=== PATIENT | female | born 1985 | race African-American/Black ===

== ENCOUNTER 2019-08-10 19:28 | Inpatient (IN) | payer MEDICAID ==
[~2019-08-10] VITALS: Ht 172.7 cm; Wt 122.5 kg
[2019-08-10] MEDS ORDERED: LACTATED RINGERS 1,000 ML IV SCH (20:16)
[2019-08-10] MEDS ORDERED: MAGNESIUM 20 G PREMIX (L & D) 500 ML IV SCH (20:25)
[2019-08-10] MEDS ORDERED: HYDRALAZINE 20MG/ML VIAL IV PRN (20:30)
[2019-08-10] MEDS ORDERED: LABETALOL HCL 5MG/ML VIAL 20ML IV PRN ×3 (20:30)
[2019-08-10] MEDS ORDERED: DEXT 5%/LR + PITOCIN 20UNITS/L 1,000 ML IV ONE ×2 (20:44→21:30)
[2019-08-10 21:23] LABS: BASOPHILS % 0.3 % (0.0-2.0); EOSINOPHILS % 0.7 % (0.0-5.0); HEMATOCRIT. 31.5 % (36.0-48.0); HEMOGLOBIN. 10.8 g/dL (12.0-16.0); LYMPHOCYTES % 17.3 % (20.0-50.0); MEAN CORPUSCULAR HEMOGLOBIN 33.7 pg (28.0-32.0); MEAN CORPUSCULAR VOLUME 98.1 fL (81.0-99.0); MEAN PLATELET VOLUME 11.8 fl (7.4-10.4); MONOCYTES % 8.3 % (2.0-8.0); NEUTROPHILS % 73.4 % (40.0-76.0); PLATELET 100 x1000/uL (130-400); RED BLOOD CELL COUNT 3.21 mill/uL (4.2-5.4); RED CELL DISTRIBUTION WIDTH 14.7 % (11.6-14.6)
[2019-08-10 21:26] LABS: CHLORIDE 111 mEq/L (98-107)
[2019-08-10 21:29] LABS: D-DIMER 1.68 mg/L FEU (<0.50); INR 0.9; PARTIAL THROMBOPLASTIN TIME 26.5 sec (23.4-31.0); PROTHROMBIN TIME 9.1 sec (9.6-11.0)
[2019-08-10] MEDS ORDERED: MAGNESIUM SULFATE 20 GM in DEXT 5% WATER 500 ML IV SCH (21:30)
[2019-08-10] MEDS ORDERED: PENICILLIN G POTASSIUM 5 MMU in DEXT 5% WATER 100 ML IV SCH (21:30)
[2019-08-10] MEDS ORDERED: MAGNESIUM 2 G PREMIX 50 ML IV NR (21:30)
[2019-08-10 21:38] LABS: CLARITY URINE CLOUDY (CLEAR); COLOR URINE DARK YELLOW (YELLOW); KETONES URINE NEGATIVE (NEGATIVE); LEUKOCYTE ESTERASE URINE NEGATIVE (NEGATIVE); NITRITE URINE NEGATIVE (NEGATIVE); OCCULT BLOOD URINE TRACE (NEGATIVE); PH URINE 5.5 (4.5-8.0); PROTEIN URINE 4+ (NEGATIVE); SPECIFIC GRAVITY URINE 1.043 (1.005-1.030)
[2019-08-10 21:48] LABS: *AMPHETAMINES SCREEN URINE NEGATIVE (NEGATIVE); *BARBITURATES SCREEN URINE NEGATIVE (NEGATIVE)
[2019-08-10 21:49] LABS: *BENZODIAZEPINES SCREEN URINE NEGATIVE (NEGATIVE); *COCAINE SCREEN URINE NEGATIVE (NEGATIVE); METHADONE URINE SCREEN NEGATIVE (NEGATIVE); OPIATES URINE SCREEN NEGATIVE (NEGATIVE); PHENCYCLIDINE URINE SCREEN NEGATIVE (NEGATIVE)
[2019-08-10 21:50] LABS: CANNABINOID URINE SCREEN NEGATIVE (NEGATIVE)
[2019-08-10 21:58] LABS: HEPATITIS B SURFACE ANTIGEN NEGATIVE
[2019-08-11] MEDS ORDERED: PENICILLIN G POTASSIUM 2.5 MMU in DEXTROSE 5% WATER 50 ML IV SCH (01:30)
[2019-08-11] MEDS ORDERED: MAGNESIUM SULFATE 20 GM in DEXT 5% WATER 460 ML IV SCH (09:00)
[2019-08-11] MEDS ORDERED: ROPIVACAINE HCL/PF EPIDURAL 200 ML EPI SCH (09:45)
[2019-08-11 09:54] LABS: BASOPHILS % 0.3 % (0.0-2.0); EOSINOPHILS % 0.2 % (0.0-5.0); HEMATOCRIT. 35.3 % (36.0-48.0); HEMOGLOBIN. 11.8 g/dL (12.0-16.0); LYMPHOCYTES % 11.1 % (20.0-50.0); MEAN CORPUSCULAR HEMOGLOBIN 32.9 pg (28.0-32.0); MEAN CORPUSCULAR VOLUME 98.9 fL (81.0-99.0); MEAN PLATELET VOLUME 11.8 fl (7.4-10.4); MONOCYTES % 6.3 % (2.0-8.0); NEUTROPHILS % 82.1 % (40.0-76.0); PLATELET 110 x1000/uL (130-400); RED BLOOD CELL COUNT 3.57 mill/uL (4.2-5.4)
[2019-08-11 10:00] LABS: CHLORIDE 109 mEq/L (98-107)
[2019-08-11 10:09] LABS: D-DIMER 1.92 mg/L FEU (<0.50); FIBRINOGEN 471 mg/dL (200-400); INR 0.9; PARTIAL THROMBOPLASTIN TIME 25.9 sec (23.4-31.0)
[2019-08-11 10:12] LABS: PROTHROMBIN TIME < 9.0 sec (9.6-11.0)
[2019-08-11] MEDS ORDERED: FENTANYL CITRATE/PF 50MCG/ML 2ML VIAL ONE (13:47)
[2019-08-11] MEDS ORDERED: DEXT 5%/LR + PITOCIN 20UNITS/L 1,000 ML IV SCH (14:50)
[2019-08-11] MEDS ORDERED: IBUPROFEN 400MG TABLET PO PRN (15:00)
[2019-08-11] MEDS ORDERED: GLYCERIN/WITCH HAZEL LEAF MEDICATED PAD TOP PRN (15:00)
[2019-08-11] MEDS ORDERED: HEMORRHOIDAL SUPP PR PRN (15:00)
[2019-08-11] MEDS ORDERED: ACETAMINOPHEN WITH CODEINE 300/30MG TABLET PO PRN ×2 (15:00)
[2019-08-11] MEDS ORDERED: BENZOCAINE/LANOLIN/ALOE VERA SPRAY TOP PRN (15:00)
[2019-08-11] MEDS ORDERED: BISACODYL 10MG SUPP PR PRN (15:00)
[2019-08-11] MEDS ORDERED: LANOLIN OINT 7GM TUBE TOP PRN (15:00)
[2019-08-11] MEDS ORDERED: DIPHENHYDRAMINE 25MG CAPSULE PO PRN (15:00)
[2019-08-11 15:45] LABS: BASOPHILS % 0.3 % (0.0-2.0); HEMOGLOBIN. 11.2 g/dL (12.0-16.0); LYMPHOCYTES % 7.6 % (20.0-50.0); MEAN CORPUSCULAR HEMOGLOBIN 33.5 pg (28.0-32.0); MEAN CORPUSCULAR VOLUME 98.1 fL (81.0-99.0); MEAN PLATELET VOLUME 11.4 fl (7.4-10.4); MONOCYTES % 3.7 % (2.0-8.0); NEUTROPHILS % 88.4 % (40.0-76.0); PLATELET 104 x1000/uL (130-400); RED BLOOD CELL COUNT 3.36 mill/uL (4.2-5.4); RED CELL DISTRIBUTION WIDTH 14.6 % (11.6-14.6)
[2019-08-11 18:15] VITALS: BP 164/79
[2019-08-11 18:22] VITALS: BP 184/98
[2019-08-11 20:00] VITALS: BP 164/88
[2019-08-11] MEDS: MAGNESIUM SULFATE 20 GM in DEXT 5% WATER 500 ML IV SCH (20:55)
[2019-08-11] MEDS: DOCUSATE SODIUM 100MG CAPSULE PO SCH (20:56)
[2019-08-11] MEDS: SIMETHICONE 80MG TABLET CHEW PO SCH (20:56)
[2019-08-11] MEDS: MAGNESIUM/ALUMINUM HYDROXIDE/SIMETHICONE 30ML UDC PO SCH (20:56)
[2019-08-11] MEDS ORDERED: LABETALOL HCL 100MG TABLET PO SCH (21:00)
[2019-08-11 22:15] VITALS: BP 172/85
[2019-08-12] VITALS (7 sets, daily range): BP systolic 125–171; BP diastolic 64–90
[2019-08-12 06:43] LABS: BASOPHILS % 0.3 % (0.0-2.0); EOSINOPHILS % 0.8 % (0.0-5.0); HEMATOCRIT. 30.7 % (36.0-48.0); HEMOGLOBIN. 10.5 g/dL (12.0-16.0); LYMPHOCYTES % 13.7 % (20.0-50.0); MEAN CORPUSCULAR HEMOGLOBIN 33.5 pg (28.0-32.0); MEAN CORPUSCULAR VOLUME 98.2 fL (81.0-99.0); MEAN PLATELET VOLUME 11.4 fl (7.4-10.4); MONOCYTES % 6.9 % (2.0-8.0); NEUTROPHILS % 78.3 % (40.0-76.0); PLATELET 96 x1000/uL (130-400); RED BLOOD CELL COUNT 3.12 mill/uL (4.2-5.4); RED CELL DISTRIBUTION WIDTH 14.8 % (11.6-14.6)
[2019-08-12] MEDS ORDERED: LABETALOL HCL 100MG TABLET PO SCH (07:39)
[2019-08-12] MEDS: PRENATAL VIT/FE FUMARATE/FA TABLET PO SCH (08:26)
[2019-08-12] MEDS: LABETALOL HCL 100MG TABLET PO SCH ×2 (08:26→16:53)
[2019-08-12] MEDS: MAGNESIUM/ALUMINUM HYDROXIDE/SIMETHICONE 30ML UDC PO SCH ×3 (08:27→18:23)
[2019-08-12] MEDS: SIMETHICONE 80MG TABLET CHEW PO SCH ×4 (08:27→20:48)
[2019-08-12] MEDS: FERROUS SULFATE 325MG TABLET PO SCH ×3 (08:27→18:23)
[2019-08-12 12:06] LABS: BASOPHILS % 0.4 % (0.0-2.0); EOSINOPHILS % 0.7 % (0.0-5.0); HEMATOCRIT. 29.8 % (36.0-48.0); HEMOGLOBIN. 10.2 g/dL (12.0-16.0); LYMPHOCYTES % 14.3 % (20.0-50.0); MEAN CORPUSCULAR HEMOGLOBIN 33.5 pg (28.0-32.0); MEAN CORPUSCULAR VOLUME 97.8 fL (81.0-99.0); MEAN PLATELET VOLUME 11.5 fl (7.4-10.4); MONOCYTES % 6.7 % (2.0-8.0); NEUTROPHILS % 77.9 % (40.0-76.0); PLATELET 100 x1000/uL (130-400); RED BLOOD CELL COUNT 3.05 mill/uL (4.2-5.4); RED CELL DISTRIBUTION WIDTH 14.6 % (11.6-14.6)
[2019-08-12] MEDS: MAGNESIUM SULFATE 20 GM in DEXT 5% WATER 500 ML IV SCH (17:09)
[2019-08-12] MEDS: DOCUSATE SODIUM 100MG CAPSULE PO SCH (20:47)
[2019-08-13 00:30] VITALS: BP 143/78
[2019-08-13] MEDS: LABETALOL HCL 100MG TABLET PO SCH ×2 (00:34→08:27)
[2019-08-13 04:00] VITALS: BP 137/65
[2019-08-13] MEDS ORDERED: LABE100T5 PO (07:05)
[2019-08-13] MEDS ORDERED: IBUP-2030 MT (07:05)
[2019-08-13] MEDS ORDERED: FERR325T23 PO (07:05)
[2019-08-13 07:43] LABS: HEMOGLOBIN 9.7 g/dL (12.0-16.0); MEAN CORPUSCULAR HEMOGLOBIN 33.3 pg (28.0-32.0); MEAN CORPUSCULAR VOLUME 99.1 fL (81.0-99.0); PLATELET 96 x1000/uL (130-400); RED BLOOD CELL COUNT 2.92 mill/uL (4.2-5.4); RED CELL DISTRIBUTION WIDTH 14.8 % (11.6-14.6)
[2019-08-13 08:00] VITALS: BP 166/74
[2019-08-13] MEDS: PRENATAL VIT/FE FUMARATE/FA TABLET PO SCH (08:25)
[2019-08-13] MEDS: MAGNESIUM/ALUMINUM HYDROXIDE/SIMETHICONE 30ML UDC PO SCH ×2 (08:25→12:30)
[2019-08-13] MEDS: FERROUS SULFATE 325MG TABLET PO SCH ×2 (08:26→12:30)
[2019-08-13] MEDS: SIMETHICONE 80MG TABLET CHEW PO SCH ×2 (08:26→13:00)
== END 2019-08-13 17:00 | disposition home or self-care (01) | DRG 542 ==
LOC: 8 EST LDRP 19:28 → OBSVTOIN 19:28 → 8EST 08-11 18:34
PROVIDERS: ADMIT Obstetrics & Gynecology; ATTEND Obstetrics & Gynecology
PROC: 10D07Z6 Extraction of Products of Conception, Vacuum, Via Natural or Artificial Opening (ICD-10-PCS; principal; 2019-08-11)
PROC: 0DQR0ZZ Repair Anal Sphincter, Open Approach (ICD-10-PCS; 2019-08-11)
PROC: 3E0R3BZ Introduction of Anesthetic Agent into Spinal Canal, Percutaneous Approach (ICD-10-PCS; 2019-08-11)
PROC: 00HU33Z Insertion of Infusion Device into Spinal Canal, Percutaneous Approach (ICD-10-PCS; 2019-08-11)
PROC: 3E033VJ Introduction of Other Hormone into Peripheral Vein, Percutaneous Approach (ICD-10-PCS; 2019-08-11)
DX: O13.4 Gestational [pregnancy-induced] hypertension without significant proteinuria, complicating childbirth (principal); D69.6 Thrombocytopenia, unspecified; O70.20 Third degree perineal laceration during delivery, unspecified; O14.94 Unspecified pre-eclampsia, complicating childbirth; O99.12 Other diseases of the blood and blood-forming organs and certain disorders involving the immune mechanism complicating childbirth; O69.81X0 Labor and delivery complicated by cord around neck, without compression, not applicable or unspecified; O99.03 Anemia complicating the puerperium; Z3A.38 38 weeks gestation of pregnancy; Z37.0 Single live birth
CPT/HCPCS: 36415; 80053; 80305; 81003; 83735; 84550; 85025; 85027; 85379; 85384; 86592; 86762; 86850; 86900; 87340; 99281; J0360; J2540; J2590; J2795; J3010; J3475; J3490; J7060; A4315